=== PATIENT | female | born 1935 | race Caucasian/White ===

== ENCOUNTER 2017-04-25 13:21 | Emergency (ER) | payer MEDICARE ==
[2017-04-25 12:41] LABS: BASOPHILS 0.4 %; BASOPHILS ABSOLUTE 0.02 10/3/uL (0.0-0.16); EOSINOPHILS 3.8 %; EOSINOPHILS ABSOLUTE 0.19 10/3/uL (0.0-0.53); ER CBC TAT 0 Hrs 05 Mins; HEMATOCRIT 43.1 % (36.0-48.0); HEMOGLOBIN 14.7 g/dL (12.0-16.0); IMMATURE GRANULOCYTES 0.2 %; IMMATURE GRANULOCYTES ABSOLUTE 0.01 10/3/uL (0.0-0.11); LYMPHOCYTES ABSOLUTE 1.26 10/3/uL (0.67-4.30); MEAN CORPUS HGB CONC 34.1 g/dL (32.0-36.0); MEAN CORPUSCULAR HEMOGLOB 31.3 pg (26.0-34.0); MEAN CORPUSCULAR VOLUME 91.7 fL (80-100); MEAN PLATELET VOLUME 11.5 fL (9.2-13.0); MONOCYTES 15.1 %; MONOCYTES ABSOLUTE 0.76 10/3/uL (0.21-1.20); NEUTROPHILS 55.5 %; PLATELET COUNT 174 10/3/uL (150-400); RBC DISTRIBUTION WIDTH 13.3 % (12.0-16.0)
[2017-04-25 12:42] LABS: MANUAL DIFF NO %
[2017-04-25 12:48] LABS: ASCORBIC ACID (UR NOT ORDER) NEG (NEG); BILIRUBIN, URINE NEGATIVE (NEG); ER URINALYSIS TAT 0 Hrs 09 Mins; KETONE, URINE NEGATIVE (NEG); LEUKOCYTE ESTERASE(NOT OR LARGE (NEG); NITRITE (URINE) NEG (NEG); WBC (NOT ORDERED) (RFLEX) 30 (0-5)
[2017-04-25 12:49] LABS: INTERNATIONAL NORMAL RATI 2.6 UNITS (-); PARTIAL THROMBO TIME 34.3 SEC (22.5-37.2); PROTIME (NOT ORD) 27.7 SEC (12.0-14.5)
[2017-04-25 12:58] LABS: ALBUMIN 3.8 G/DL (3.5-5.0); BUN (BLOOD UREA NITROGEN) 8 MG/DL (6-23); CHEST PAIN PROFILE TAT 0 Hrs 22 Mins; CHLORIDE, SERUM 100 MMOL/L (96-112); CO2 (CARBON DIOXIDE) 30 MMOL/L (24-34); CREATININE 0.97 MG/DL (0.55-1.02); DIRECT BILIRUBIN 0.2 MG/DL (0.0-0.4); GFR AFRICAN AMERICAN 63 ML/MIN (>=60); GFR NON AFRICAN AMERICAN 54 ML/MIN (>=60); GLUCOSE, SERUM 100 MG/DL (60-99); INDIRECT BILIRUBIN(NOT ORDER) 0.4 MG/DL (0.1-0.9); POTASSIUM, SERUM 4.2 MMOL/L (3.5-5.3); SGOT(AST) 29 U/L (5-40); SGPT(ALT) 16 U/L (5-65); SODIUM, SERUM 138 MMOL/L (135-148); TOTAL BILIRUBIN 0.6 MG/DL (0-1.2); TOTAL PROTEIN 7.4 G/DL (6.0-8.5); TROPONIN I <0.02 NG/ML (<0.05)
[2017-04-25 12:59] LABS: ALKALINE PHOSPHATASE 90 U/L (45-117)
[~2017-04-25 13:21] MED LIST: ATIVAN2 MG PO; CARDCD180 PO; CARDIZEM LA120 MG PO; CARDIZEM LA360 MG PO; DEMA20 PO; DEPO-ESTRAD5 MG/1 ML IM; DEPO-ESTRADIO1 MG/ML IM; ESTRADIOL; GLYCOLAX PO; JANTOVEN1 MG PO; JANTOVEN5 MG PO; K-TABS10 MEQ PO; KLOR-CON M2020 MEQ PO; LIDODERM T; LIDODERM TOP; LOP25 PO; MAGOX4 PO; MAGTRATE500 MG PO; MSCONT60 PO; NEUR100 PO; OXYCON40 PO; PR12.5 PO; PRADAXA150 MG PO; TAZTIA X4 PO; VITAMIN D31000 UNIT PO; Z5 PO
== END 2017-04-25 15:45 | disposition home or self-care (01) ==
LOC: ER 13:21
PROVIDERS: Emergency Medicine
DX: N39.0 Urinary tract infection, site not specified (principal); I48.91 Unspecified atrial fibrillation; R42 Dizziness and giddiness; R53.1 Weakness; I10 Essential (primary) hypertension; Z85.118 Personal history of other malignant neoplasm of bronchus and lung; Z90.2 Acquired absence of lung [part of]; Z88.0 Allergy status to penicillin; Z79.01 Long term (current) use of anticoagulants; Z79.891 Long term (current) use of opiate analgesic; Z79.899 Other long term (current) drug therapy
CPT/HCPCS: 70450; 80048; 80076; 81001; 83735; 84484; 85025; 85610; 85730; 87086; 93005; 99285; A9270-GY